=== PATIENT | female | born 1960 | race Caucasian/White ===

== ENCOUNTER 2024-01-14 08:48 | Outpatient (AMB) | payer OTHER, SELFPAY ==
--- NOTE | 2024-01-14 08:52 | A.OFFPC_ITS ---
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 Accompanied by: Self / Same As Patient Allergies No Known Allergies Allergy (Verified 01/14/24 09:09) Medication List - Last Reconciled 01/14/24 by Sherrill Sin MD amoxicillin 500 mg PO TID citalopram mg PO DAILY Tobacco use date assessed: 01/14/24 Fall risk assessment: No Falls in past year Last assessed Fall Risk: 01/14/24 Dental Screening Dental Screen Date: 01/14/24 Did you have a dental visit in the last 12 months?: Yes Did you have a dental problem in the last 6 months where you did not have access to dental care?: No Was dental information given to patient?: Patient has dentist HPI HPI Comments History of Present Illness Details This is a 63-year-old female with mild major depression that comes today to establish care. Mammogram done 2023 was normal. Pap smear done 2023 was normal. Colonoscopy was done at 60 years old and was normal and next colonoscopy should be at 70 years old. Depression stable with citalopram. EKG will be done to rule out a prolonged QT interval as 1 of the side effects of citalopram. She complains of a skin lesion that has increase in size in right arm and also right thigh and I will refer her to Dermatology. She also has some insomnia and I advised to cut down on drinking alcohol and try to exercise about 3 hours before going to bed. Not drinking a lot of liquids 2-3 hours before bedtime. She takes [id number] melatonin as needed. She also complains of right knee pain and the knee giving out sometimes. She is overweight and was advised to do diet and exercise as tolerated. [facility] Surgical History History of dental surgery History of bunionectomy History of D&C Family History Father Diabetes Cancer of kidney Mother Breast cancer Lung cancer Family/Other Substance use disorder Social History Housing: House Alcohol intake: current Alcohol intake frequency: a few times a month Alcohol type: wine Patient Tobacco Use Status: Never used Tobacco e-Cigarette/Vaping Use: Never Used Second Hand Smoke Exposure: Yes service: No Current occupational status: retired Cognitive needs: No Hearing needs: No Vision needs: Yes Female Reproductive History Menstrual Date of last pap smear: 09/23/23 Date of Mammogram: 10/01/23 Questionnaire PHQ-9 Over the last 2 weeks, how often have you been bothered by any of the following problems? 1. Little interest or pleasure in doing things: not at all 2. Feeling down, depressed, or hopeless: not at all 3. Trouble falling or staying asleep, or sleeping too much: not at all 4. Feeling tired or having little energy: not at all 5. Poor appetite or overeating: not at all 6. Feeling bad about yourself - or that you are a failure or have let yourself or your family down: not at all 7. Trouble concentrating on things, such as reading the newspaper or watching television: not at all 8. Moving or speaking so slowly that other people could have noticed. Or the opposite - being so fidgety or restless that you have been moving around a lot more than usual: not at all 9. Thoughts that you would be better off or of hurting yourself in some way: not at all Total score: 0 Depression Screening Interpretation: Negative Depression Screening Done: Yes 54665 - PHQ-9 Billing: Yes Source: Developed by Drs. Mesfin Villatoro, Ifrah Segal, Abraham Billy and colleagues, with an educational ora from [employer]. Thrive Questionnaire Date Thrive assessed: 01/14/24 I am a: Patient What is your living situation today?: I have a steady place to live Within the past 12 months, did the food you bought not last and you didn't have the money to get more?: Never true Within the past 12 months, did you worry whether your food would run out before you got money to buy more?: Never true Do you have trouble paying for medicines?: No Do you have trouble getting transportation to medical appointments?: No Do you have trouble paying your heating and electricity bill?: No Do you have trouble taking care of your child, family member or friend?: No Do you have trouble with day-to-day activities such as bathing, preparing meals, shopping, managing finances, etc.?: No Are you currently unemployed and looking for a job?: No Are you interested in more education?: No Please select the resources that you would like help with: None Currently or been in a relationship where the following occur: No concerns reported THRIVE Score: 0 AUDIT C Alcohol Use Questionnaire (AUDIT-C) 1. How often do you have a drink containing alcohol?: 2-4 times a month 2. How many drinks containing alcohol do you have on a typical day when you are drinking?: 3 or 4 3. How often do you have six or more drinks on one occasion?: Never Total Score: 3 Score Reviewed/Action Taken: Yes ANA-7 AMB Questionnaire ANA-7 Date AAN - 7 assessed: 01/14/24 Feeling nervous, anxious, or on edge: 0 = Not at all Not being able to stop or control worryin = Not at all Worrying too much about different things: 0 = Not at all Trouble relaxin = Not at all Being so restless that it is hard to sit still: 0 = Not at all Becoming easily annoyed or irritable: 0 = Not at all Feeling afraid as if something awful might happen: 0 = Not at all Total ANA-7 score (0-4 normal; 5-9 mild; 10-14 moderate; 15-21 severe): 0 Source: Developed by Drs. Mesfin Villatoro, Ifrah Segal, Abraham Billy and colleagues, with an educational ora from [employer]. ANA-7 Assessment Billing ANA-7 Assessment Tool: ANA-7 Assessment 32991 Review of Systems Const All systems reviewed & are unremarkable except as noted in HPI and below Card Denies chest pain at rest, Denies chest pain with activity, Denies edema, Denies irregular heart rhythm, Denies claudication, Denies dyspnea, Denies dyspnea on exertion, Denies orthopnea, Denies paroxysmal nocturnal dyspnea and Denies slow heart rate Resp Denies cough, Denies dyspnea and Denies dyspnea on exertion GI Denies abdominal pain, Denies change in bowel habits, Denies excessive flatus, Denies nausea and Denies vomiting Musc Reports arthralgias Skin/Breast Reports lesions Psych Reports abnormal sleep pattern Physical exam (Primary Care) Vital Signs: Last Vital Signs BP 130/80 01/14/24 08:57 BMI result Body Mass Index 29.1 BMI Assessment/Plan discussion: High BMI High, discussed plan: lifestyle, weight reduction, dietary, physical activity and alcohol moderation Tobacco/Smoking Status: Tobacco use Status Tobacco use date assessed 01/14/24 01/14/24 09:05 Patient Tobacco Use Status Never used Tobacco 01/14/24 09:05 e-Cigarette/Vaping Use Never Used 01/14/24 09:05 PHQ-9: PHQ-9 Score PHQ-9: Total score 0 01/14/24 09:12 Depression Screening Interpretation: Negative Thrive Assessment: Date of Thrive Assessment Date Thrive assessed 01/14/24 01/14/24 08:54 Currently or been in a relationship where the following occur: No concerns reported Resp Effort & Inspection: normal respiratory effort Auscultation: clear to auscultation bilaterally Cardio Jugular venous distension: no JVD Rate: regular rate Rhythm: regular rhythm Heart sounds: S1 normal heart sound present and S2 normal heart sound present Extrem General: Yes full ROM Assessment and Plan Assessment & Plan (1) Mild major depression: Code(s): F32.0 - Major depressive disorder, single episode, mild Plan: Continue citalopram. (2) Overweight (BMI 25.0-29.9): Code(s): E66.3 - Overweight Plan: Start diet and exercise as tolerated. (3) Skin lesion: Code(s): L98.9 - Disorder of the skin and subcutaneous tissue, unspecified Plan: Referred to dermatology. (4) Right knee pain: Code(s): M25.561 - Pain in right knee Qualifiers: Chronicity: chronic Qualified Code(s): M25.561 - Pain in right knee; G89.29 - Other chronic pain Plan: X-ray ordered. Referred to Ortho. (5) Insomnia: Code(s): G47.00 - Insomnia, unspecified Qualifiers: Insomnia type: unspecified Qualified Code(s): G47.00 - Insomnia, unspecified Plan: Sleep hygiene education given. Continue melatonin as needed. Orders: Orders XR knee RT 2V Today M25.561 - Pain in right knee ECG 12 lead EKG Today R94.31 - Abnormal electrocardiogram [ECG] [EKG] Lipid Panel Today E66.3 - Overweight Comprehensive [place]. Panel Fast Today E66.3 - Overweight Referrals Dermatology Referral L98.9 - Disorder of the skin and subcutaneous tissue, unspecified Orthopedics Referral M25.561 - Pain in right knee Medications: New citalopram 30 mg PO DAILY 90 caps 1RF 90 days Coding Level of Care Code New Pt Level 4 (74940) Complex EM visit Add On G2211 Diagnoses Mild major depression F32.0 Overweight (BMI 25.0-29.9) E66.3 Skin lesion L98.9 Chronic pain of right knee M25.561; G89.29 Chronicity: chronic Insomnia, unspecified type G47.00 Insomnia type: unspecified Additional Codes ANA-7 Assessment Billing - ANA-7 Assessment Tool: ANA-7 Assessment 06669 ([id number]) Time Spent (min) 24
[2024-01-14 08:57] VITALS: BP 130/80; BMI 29.1
== END 2024-01-14 09:46 | disposition home or self-care (01) ==
PROVIDERS: PCP Internal Medicine; Visit Provider Internal Medicine
DX: M25.561 Pain in right knee (principal); F32.0 Major depressive disorder, single episode, mild; E66.3 Overweight; L98.9 Disorder of the skin and subcutaneous tissue, unspecified; G89.29 Other chronic pain; G47.00 Insomnia, unspecified
CPT/HCPCS: 99204; G2211

== ENCOUNTER 2024-01-14 09:58 | Outpatient (REF) | payer OTHER, SELFPAY ==
--- NOTE | ~2024-01-14 | XR_ITS ---
EXAMINATION: XR KNEE, RIGHT CLINICAL INFORMATION: Chronic right knee pain COMPARISON: None available. TECHNIQUE: AP and lateral weightbearing views of the right knee. FINDINGS: No fracture or joint effusion. Alignment is anatomic. Joint spaces are maintained. No abnormal soft tissue calcification. XR/XR knee RT 2V IMPRESSION: Normal right knee.
--- NOTE | 2024-01-14 10:04 | ECG_ITS ---
Test Reason : abn ekg Blood Pressure : / mmHG Vent. Rate : 058 BPM Atrial Rate : 058 BPM P-R Int : 196 ms QRS Dur : 080 ms QT Int : 424 ms P-R-T Axes : 012 046 057 degrees QTc Int : 416 ms Sinus bradycardia Otherwise normal ECG No previous ECGs available Referred By: Sherrill Sin Electronically Signed By:JUDSON COOPER MD
== END 2024-01-14 09:59 | disposition home or self-care (01) ==
LOC: HO.XRAY 09:58
PROVIDERS: PCP Internal Medicine; Visit Provider Internal Medicine
DX: M25.561 Pain in right knee (principal); R94.31 Abnormal electrocardiogram [ECG] [EKG]
CPT/HCPCS: 73560; 93005

== ENCOUNTER → 2024-01-14 10:04 | Outpatient (BNV) | payer OTHER, SELFPAY | PROVIDERS: PCP Internal Medicine; Visit Provider Internal Medicine Cardiovascular Disease | DX: R00.1 Bradycardia, unspecified (principal) | CPT/HCPCS: 93010 ==

== ENCOUNTER 2024-02-17 10:01 | Outpatient (AMB) | payer OTHER, SELFPAY ==
--- NOTE | 2024-02-17 10:04 | MHC.OFFVIS ---
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 The patient states that her symptoms have gotten worse over the last 10 years. She states that her right knee will buckle several times per week. She is concerned that because of the feeling of instability she will fall at some point. She has failed the last 6 weeks of conservative treatment. She has done physical therapy exercises which aggravated her pain. She has also tried Tylenol and anti-inflammatory medicines which gave her minimal relief. Most of the pain is along the anterior and medial aspects of her knee. Allergies No Known Allergies Allergy (Verified 02/17/24 10:04) Medication List - Last Reconciled 02/17/24 by Jose Luis Barnes MD citalopram 30 mg PO DAILY 90 days citalopram 30 mg (1.5 x 20 mg) PO DAILY 90 days [facility] Surgical History History of dental surgery History of bunionectomy History of D&C Family History Father Diabetes Cancer of kidney Mother Breast cancer Lung cancer Family/Other Substance use disorder Social History Housing: House Alcohol intake: current Alcohol intake frequency: a few times a month Alcohol type: wine Patient Tobacco Use Status: Never used Tobacco e-Cigarette/Vaping Use: Never Used Second Hand Smoke Exposure: Yes service: No Current occupational status: retired Cognitive needs: No Hearing needs: No Vision needs: Yes Physical Exam Const Other: Well-nourished well-developed very friendly female awake alert and oriented x3 in no acute distress Extrem Other: Bilateral lower extremity examination shows good capillary refill, no skin lesions noted, normal sensation light touch Right knee examination shows a minimal effusion, minimal crepitus with range of motion, tenderness along her medial joint line, positive Zoraida's test, no instability Results Reviewed Results Reviewed: Standing full weight-bearing x-rays of the patient's right knee show mild diffuse joint space narrowing, no acute bony abnormalities Assessment & Plan Assessment & Plan (1) Right knee pain: Code(s): M25.561 - Pain in right knee Category: Medical Qualifiers: Chronicity: chronic Qualified Code(s): M25.561 - Pain in right knee; G89.29 - Other chronic pain Plan Ms. Hood presents with progressively worsening right knee pain and mechanical symptoms most likely due to a tear of her medial meniscus. Thus, I will send the patient for an MRI of her right knee for further evaluation. I will see her back once the MRI is completed to discuss the findings and treatment options. Feel free to call me at any time should questions regarding her orthopedic management arise. Thank you very much for asking me to see this very friendly patient. I spent 20 minutes in reviewing the patient's records and imaging studies, seeing the patient and documenting in the medical record. Orders: Orders MR knee RT wo con Today G89.29 - Other chronic pain, M25.561 - Pain in right knee Coding Level of Care Code New Pt Level 3 (10602) Diagnoses Chronic pain of right knee M25.561; G89.29 Chronicity: chronic
== END 2024-02-17 10:23 | disposition home or self-care (01) ==
PROVIDERS: PCP Internal Medicine; Visit Provider Orthopaedic Surgery
DX: M25.561 Pain in right knee (principal); G89.29 Other chronic pain
CPT/HCPCS: 99203

== ENCOUNTER → 2024-02-17 10:25 | Outpatient (REF) | payer OTHER, SELFPAY ==
[2024-02-17 12:39] LABS: Alanine Aminotransferase 33 U/L (0-31); Albumin Level 4.4 g/dL (3.5-5.0); Alkaline Phosphatase 75 U/L (39-117); Anion Gap 11 (12-20); Aspartate Amino Transferase 26 U/L (5-31); Bilirubin Total 0.5 mg/dL (0.0-1.0); Blood Urea Nitrogen 10 mg/dL (9-16); Calcium 9.6 mg/dL (8.4-10.2); Carbon Dioxide 26 mmol/L (22-29); Chloride 106 mmol/L (96-108); Cholesterol 219 mg/dL (<200); Estimated Glomerular Filt Rate > 60; Glucose Fasting 110 mg/dL (60-99); HDL Cholesterol 69 mg/dL (>40); LDL Cholesterol Calculated 121 mg/dL (<100); Potassium 4.1 mmol/L (3.3-5.1); Sodium 139 mmol/L (135-145); Total Protein 6.9 g/dL (6.5-8.0); Triglycerides 148 mg/dL (<150)
--- NOTE | 2024-02-17 13:29 | HM_ITS ---
* Total monitoring time 1 day. * Underlying rhythm is sinus with an average rate of 71/Min. * Rare supraventricular ectopy. * No significant pauses or AV blocks. * No patient markers. * Diary not submitted. MTDD
== END ==
LOC: HO.CARD 10:25
PROVIDERS: PCP Internal Medicine; Visit Provider Internal Medicine
DX: R00.1 Bradycardia, unspecified (principal); E66.3 Overweight
CPT/HCPCS: 36415; 80053; 80061; 93225; 99202

== ENCOUNTER → 2024-02-17 13:29 | Outpatient (BNV) | payer OTHER, SELFPAY | PROVIDERS: PCP Internal Medicine; Visit Provider Internal Medicine | DX: I47.10 Supraventricular tachycardia, unspecified (principal) | CPT/HCPCS: 93227 ==

== ENCOUNTER 2024-05-19 19:41 | Outpatient (REF) | payer OTHER, SELFPAY ==
--- NOTE | ~2024-05-19 | MR_ITS ---
EXAMINATION: MR KNEE WITHOUT CONTRAST, RIGHT CLINICAL INFORMATION: Right knee pain and instability. COMPARISON: Right knee radiographs dated 01/14/2024. TECHNIQUE: MRI of the knee without contrast was performed using routine sequences on a high-field scanner. FINDINGS: MENISCI: Medial Meniscus: Intact Lateral Meniscus: Intact LIGAMENTS: Cruciate: Intact Collateral: Intact EXTENSOR MECHANISM: Intact ARTICULAR CARTILAGE/BONE: Patellofemoral Compartment: Patellar median ridge articular cartilage thinning with areas of full-thickness loss superiorly, measuring up to 1.6 cm in craniocaudal dimension. Underlying subchondral cystic change and mild marrow edema. Superior medial trochlea signal heterogeneity. Tiny marginal osteophytes. Medial Compartment: Intact articular cartilage. Lateral Compartment: Intact articular cartilage. Degenerative cystic change within the posterior aspect of the lateral tibial plateau, measuring up to 1.3 cm. JOINT FLUID AND BURSAE: Small joint effusion and trace Allison's cyst. MR/MR knee RT wo con IMPRESSION: 1. No acute meniscal or ligamentous injury. 2. Mild patellofemoral osteoarthritis. 3. Small joint effusion and trace Allison's cyst. Electronically signed by: Austin Benitez MD 06/04/2024 09:11 PM [facility]
== END 2024-05-19 19:42 | disposition home or self-care (01) ==
LOC: HO.MRI 19:41
PROVIDERS: PCP Internal Medicine; Visit Provider Orthopaedic Surgery
DX: M25.561 Pain in right knee (principal); G89.29 Other chronic pain
CPT/HCPCS: 73721

== ENCOUNTER 2024-06-08 14:54 | Outpatient (AMB) | payer OTHER, SELFPAY ==
--- NOTE | 2024-06-08 15:14 | A.OFFPC_ITS ---
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 Accompanied by: Self / Same As Patient Allergies No Known Allergies Allergy (Verified 06/08/24 15:35) Medication List - Last Reconciled 06/08/24 by Sherrill Sin MD citalopram 30 mg PO DAILY 90 days Tobacco use date assessed: 01/14/24 Fall risk assessment: No Falls in past year Last assessed Fall Risk: 06/08/24 Dental Screening Dental Screen Date: 06/08/24 Did you have a dental visit in the last 12 months?: Yes Did you have a dental problem in the last 6 months where you did not have access to dental care?: No Was dental information given to patient?: Patient has dentist HPI HPI Comments History of Present Illness Details The patient is a 63-year-old female presenting for her annual physical examination. She is due for a tetanus vaccine booster, as her last dose was in 2013. The patient also requires an influenza vaccination, which she postponed following a COVID-19 infection in December 2022. Had a colonoscopy in 2020 with normal findings and no polyps; the next colonoscopy is due in 2030. The patient reports a history of HPV infection approximately 40 years ago that resolved. She recently had normal Pap smear and mammogram results in September 2023. She denies current allergies to medications. Concerning her family history, the patient mentions significant cancer occurrences, including her mother's breast and lung cancer, her sister's ovarian and breast cancers, and another sister's ovarian cancer, raising concerns for hereditary cancer syndromes. Her father had kidney cancer and diabetes. The patient expresses concern about her 36-year-old daughter's risk of breast cancer. For lifestyle-related issues, the patient notes drinking alcohol more frequently, especially during social events, but recognizes the importance of moderation. She discusses dietary habits and mentions a willingness to increase physical activity, motivated by the desire to lose weight. She has initiated walking with her and plans to [facility]. Recent blood work from January 2024 showed elevated cholesterol levels (total cholesterol 219 mg/dL, LDL 121 mg/dL, HDL 69 mg/dL), and borderline elevated fasting blood glucose at 110 mg/dL, indicating pre-diabetes. Her Safford risk score for cardiovascular events is 2%. - Tetanus booster vaccine due - Influenza vaccine administration plann ed - Colonoscopy: completed in 2020, next s cheduled for 2030, no polyps noted - Pap smear: completed in September 2023, no rmal results, may not require future tests post-65 - Mammogram: completed in September 2023, no rmal results - Recommending bone density screening du e to age and menopausal status - Genetic counseling/follow-up for famil ial cancer risk - Repeated bloodwork planned before 2023 due to pre-diabetes and liver enzyme elevation concern - Discussed alcohol consumption limits: 6 drinks per week maximum PFSH Surgical History (Updated 06/08/24 @ 15:40 by Sherrill Sin MD) H/O colonoscopy History of dental surgery History of bunionectomy History of D&C Family History (Updated 06/08/24 @ 15:44 by Sherrill Sin MD) Father Diabetes Cancer of kidney Mother Breast cancer, Onset Age: 61 Lung cancer Family/Other Substance use disorder Ovarian cancer Social History (Updated 06/08/24 @ 15:49 by Sherrill Sin MD) Housing: House Alcohol intake: current Alcohol intake frequency: a few times a week Alcohol type: wine Patient Tobacco Use Status: Never used Tobacco e-Cigarette/Vaping Use: Never Used Second Hand Smoke Exposure: Yes service: No Current occupational status: retired Cognitive needs: No Hearing needs: No Vision needs: Yes Questionnaire PHQ-9 Over the last 2 weeks, how often have you been bothered by any of the following problems? 1. Little interest or pleasure in doing things: not at all 2. Feeling down, depressed, or hopeless: not at all 3. Trouble falling or staying asleep, or sleeping too much: several days 4. Feeling tired or having little energy: not at all 5. Poor appetite or overeating: not at all 6. Feeling bad about yourself - or that you are a failure or have let yourself or your family down: not at all 7. Trouble concentrating on things, such as reading the newspaper or watching television: not at all 8. Moving or speaking so slowly that other people could have noticed. Or the opposite - being so fidgety or restless that you have been moving around a lot more than usual: not at all 9. Thoughts that you would be better off or of hurting yourself in some way : not at all Total score: 1 Depression Screening Interpretation: Positive Depression Screening Follow-up: Existing condition, In treatment and Follow-up Visit Requested Depression Screening Done: Yes 44412 - PHQ-9 Billing: Yes Source: Developed by Drs. Mesfin Villatoro, Ifrah Segal, Abraham Billy and colleagues, with an educational ora from [employer]. Thrive Questionnaire Date Thrive assessed: 06/08/24 I am a: Patient What is your living situation today?: I have a steady place to live Within the past 12 months, did the food you bought not last and you didn't have the money to get more?: Never true Within the past 12 months, did you worry whether your food would run out before you got money to buy more?: Never true Do you have trouble paying for medicines?: No Do you have trouble getting transportation to medical appointments?: No Do you have trouble paying your heating and electricity bill?: No Do you have trouble taking care of your child, family member or friend?: No Do you have trouble with day-to-day activities such as bathing, preparing meals, shopping, managing finances, etc.?: No Are you currently unemployed and looking for a job?: No Are you interested in more education?: No Please select the resources that you would like help with: None Currently or been in a relationship where the following occur: No concerns reported THRIVE Score: 0 AUDIT C Alcohol Use Questionnaire (AUDIT-C) 1. How often do you have a drink containing alcohol?: 4 or more times a week 2. How many drinks containing alcohol do you have on a typical day when you are drinking?: 3 or 4 3. How often do you have six or more drinks on one occasion?: Never Total Score: 5 ANA-7 AMB Questionnaire ANA-7 Date ANA - 7 assessed: 06/08/24 Feeling nervous, anxious, or on edge: 0 = Not at all Not being able to stop or control worryin = Not at all Worrying too much about different things: 0 = Not at all Trouble relaxin = Not at all Being so restless that it is hard to sit still: 1 = Several days Becoming easily annoyed or irritable: 0 = Not at all Feeling afraid as if something awful might happen: 0 = Not at all Total ANA-7 score (0-4 normal; 5-9 mild; 10-14 moderate; 15-21 severe): 1 Source: Developed by Drs. Mesfin Villatoro, Ifrah Segal, Abraham Billy and colleagues, with an educational ora from [employer]. ANA-7 Assessment Billing ANA-7 Assessment Tool: ANA-7 Assessment 73017 Review of Systems Const All systems reviewed & are unremarkable except as noted in HPI and below Card Denies chest pain at rest, Denies chest pain with activity, Denies edema, Denies irregular heart rhythm, Denies claudication, Denies dyspnea, Denies dyspnea on exertion, Denies orthopnea, Denies paroxysmal nocturnal dyspnea and Denies slow heart rate Resp Denies cough, Denies dyspnea and Denies dyspnea on exertion GI Denies abdominal pain, Denies change in bowel habits, Denies excessive flatus, Denies nausea and Denies vomiting Denies urinary incontinence, Denies urinary hesitancy and Denies urinary urgency Musc Denies abnormal gait, Denies atrophy, Denies deformity and Denies limited range of motion Skin/Breast Denies bleeding lesions, Denies changing lesions and Denies rash Neuro Denies abnormal gait, Denies behavioral changes and Denies lack of coordination Psych Denies behavioral changes Physical exam (Primary Care) Vital Signs: Last Vital Signs BP 128/82 06/08/24 15:16 BMI result Body Mass Index 29.3 BMI Assessment/Plan discussion: High BMI High, discussed plan: lifestyle, weight reduction, dietary, physical activity and alcohol moderation Tobacco/Smoking Status: Tobacco use Status Tobacco use date assessed 01/14/24 06/08/24 15:14 Patient Tobacco Use Status Never used Tobacco 06/08/24 15:48 e-Cigarette/Vaping Use Never Used 06/08/24 15:48 PHQ-9: PHQ-9 Score PHQ-9: Total score 1 06/08/24 16:48 Depression Screening Interpretation: Positive Depression Screening Follow-up: Existing condition, In treatment and Follow-up Visit Requested Thrive Assessment: Date of Thrive Assessment Date Thrive assessed 06/08/24 06/08/24 15:21 Currently or been in a relationship where the following occur: No concerns reported [facility] Head: Yes normal to inspection, Yes normocephalic and Yes atraumatic Ears: external ears normal Eyes General: appearance normal, both eyes and all related structures Eyelids: Yes eyelids normal Conjunctivae: conjunctivae normal Neck Neck: Yes normal visual inspection and Yes supple Resp Effort & Inspection: normal respiratory effort Auscultation: clear to auscultation bilaterally Cardio Jugular venous distension: no JVD Rate: regular rate Rhythm: regular rhythm Heart sounds: S1 normal heart sound present and S2 normal heart sound present GI Inspection: Yes normal to inspection Palpation (GI): Soft to palpation and nontender Auscultation: normal bowel sounds Skin General skin exam: no rashes or lesions noted Neuro General: no focal motor deficits Extrem General: Yes full ROM Psych Appearance: grossly normal Office Procedures Flu Questionnaire Does the patient have a severe egg allergy?: No Does the patient have severe life threatening allergies?: No Does the patient have a fever or illness today?: No Has the patient ever had Guillain-[place] Syndrome?: No Has the patient ever had any past reaction to a flu shot?: No Immunizations Fluarix Triv [id number] (PF) 45 mcg (15 mcg x 3)/0.5 mL IM syringe Performing Provider: Sherrill Sin MD Performing Location: [facility] Administered by: MICKEY Ravi on 06/08/24 16:10 Dose Route Admin Location Dispensed Lot Number Expiration Date [facility] Diet Tech 0.5 mL IM Left Deltoid 0.5 mL [id number] 12/26/24 02110-383-04 [employer] [facility] VIS Given Date VIS Provided VIS Publication Date 06/08/24 Single Vaccine 21 Eligibility Eligibility Date Funding Source Not [facility] Eligible 06/08/24 Private tetanus-diphtheria toxoids-Td 2 Lf unit-2 Lf unit/0.5 mL IM suspension Performing Provider: Sherrill Sin MD Performing Location: [facility] Administered by: MICKEY Ravi on 06/08/24 16:10 Dose Route Admin Location Dispensed Lot Number Expiration Date [facility] Diet Tech 0.5 mL IM Right Deltoid 0.5 mL [id number] 08/08/24 [id number] [employer] VIS Given Date VIS Provided VIS Publication Date 06/08/24 Single Vaccine 21 Eligibility Eligibility Date Funding Source Not [facility] Eligible 06/08/24 State funds Coding Level of Care Code Est Pt Prev Care 40-64y(11544) Diagnoses Physical exam Z00.00 Additional Codes ANA-7 Assessment Billing - ANA-7 Assessment Tool: ANA-7 Assessment 46530 ([id number]) PHQ-9 - 87119 - PHQ-9 Billing: Yes ([id number]) Time Spent (min) 31 Assessment & Plan Assessment & Plan (1) Physical exam: Code(s): Z00.00 - Encounter for general adult medical examination without abnormal findings Category: Medical Plan 1. - Discuss alcohol moderation and encourage adherence to recommended limits: - Advise on dietary modification with reduced carbohydrate intake and increased physical activity to manage pre-diabetes. - Monitor cholesterol; diet and exercise reinforcement to sustain healthy levels. - Encourage weight management and regular exercise regime, possible enrollment in the gym or walking routine continuation. Patient was informed and verbally consented to the use of an ambient scribe for clinic note documentation during this visit. I consulted with the patient regarding her pending tetanus and influenza vaccinations, confirming the need for a booster and the practicality of concurrent administration. We discussed her family history of cancer, including potential implications for her and her daughter, if she considers BRCA gene testing or other genetic evaluations. I addressed her concerns about pre- diabetes, elaborating on dietary changes and exercise to lower glucose levels. I highlighted the significance of controlling cholesterol via lifestyle modifi cations, reassured by the current protective Safford risk score. We acknowledged the need for repeated lab tests to ensure there's no progression to diabetes. Lifestyle habits and alcohol consumption were reviewed, underlining their links to triglycerides and liver health. Plans for a follow-up with dermatology were noted, addressing the scheduled June appointment. I oriented her towards Medicare practices and changes to care follow-ups post-65 with a focus on wellness rather than physical examinations. Orders: Orders Influenza [id number] Immunization Today Z23 - Encounter for immunization Lipid Panel Today E78.5 - Hyperlipidemia, unspecified XR DEXA axial skeleton Today Z78.0 - Asymptomatic menopausal state Comprehensive [place]. Panel Fast Today Z00.00 - Encounter for general adult medical examination without abnormal findings Td State Immunization Today Z23 - Encounter for immunization Referrals Genetics Referral Z80.3 - Family history of malignant neoplasm of breast Patient Instructions: - Return to the clinic for tetanus and flu vaccinations as discussed. - Follow through with genetic counseling for cancer risk assessment. - Undergo a bone density test as scheduled. - Schedule an appointment for repeated laboratory tests before June 2023 to monitor fasting glucose and liver enzymes. - Limit alcohol consumption to recommended levels: six drinks per week, with a maximum of three on any given day. - Focus on reducing carbohydrate intake, moderating caloric intake from coffee additives, and increasing physical activity to support cholesterol and glucose levels. - Anticipate and plan for healthcare adjustments upon transitioning to Medicare, prioritizing wellness visits. - Continue with the dermatology appointment in June 2023 as scheduled.
[2024-06-08 15:16] VITALS: BP 128/82; BMI 29.3
== END 2024-06-08 16:08 | disposition home or self-care (01) ==
PROVIDERS: PCP Internal Medicine; Visit Provider Internal Medicine
DX: Z23 Encounter for immunization (principal); Z00.00 Encounter for general adult medical examination without abnormal findings

== ENCOUNTER → 2024-06-08 14:54 | Outpatient (BNVA) | payer OTHER, SELFPAY | PROVIDERS: PCP Internal Medicine; Visit Provider Internal Medicine | DX: Z00.00 Encounter for general adult medical examination without abnormal findings (principal); Z23 Encounter for immunization | CPT/HCPCS: 90471; 90472; 90656; 90714; 96127; 99396 ==

== ENCOUNTER 2024-06-13 10:27 | Outpatient (AMB) | payer OTHER, SELFPAY ==
--- NOTE | 2024-06-13 10:30 | MHC.OFFVIS ---
Vital Signs 06/13/24 10:32 Height 5 ft 3.5 in Weight 168 lb BMI 29.3 Intake Visit Reasons: OV- Right knee MRI review Intake Note: Ella is a 63 year old female who presents with complaints of intermittent right knee pain and giving way. The patient states that her symptoms have gotten somewhat worse over the last 10 years. She states that her right knee will buckle several times per week. She is concerned that because of the feeling of instability she will fall at some point. She has failed the last 6 weeks of conservative treatment. She has done physical therapy exercises which aggravated her pain. She has also tried Tylenol and anti-inflammatory medicines which gave her minimal relief. Most of the pain is along the anterior and medial aspects of her knee. Allergies No Known Allergies Allergy (Verified 06/13/24 10:32) Medication List - Last Reconciled 06/13/24 by Jose Luis Barnes MD citalopram 30 mg PO DAILY 90 days PFS Surgical History (Updated 06/08/24 @ 15:40 by Sherrill Sin MD) H/O colonoscopy History of dental surgery History of bunionectomy History of D&C Family History Father Diabetes Cancer of kidney Mother Breast cancer, Onset Age: 61 Lung cancer Family/Other Substance use disorder Ovarian cancer Social History Housing: House Alcohol intake: current Alcohol intake frequency: a few times a week Alcohol type: wine Patient Tobacco Use Status: Never used Tobacco e-Cigarette/Vaping Use: Never Used Second Hand Smoke Exposure: Yes service: No Current occupational status: retired Cognitive needs: No Hearing needs: No Vision needs: Yes Physical Exam Vital Signs: BMI result Body Mass Index 29.3 Const Other: Well-nourished well-developed very friendly female awake alert and oriented x3 in no acute distress Extrem Other: Right knee examination shows a minimal effusion, minimal crepitus with range of motion, tenderness along her medial and lateral joint lines, positive Zoraida's test, no instability Results Reviewed Results Reviewed: Standing full weight-bearing x-rays of the patient's right knee show mild diffuse joint space narrowing, no acute bony abnormalities MRI of the patient's right knee shows mild diffuse degenerative changes as well as a tear of the anterior horn of the lateral meniscus and possible tear of the posterior horn of the medial meniscus Assessment & Plan Assessment & Plan (1) Right knee pain: Code(s): M25.561 - Pain in right knee Category: Medical Qualifiers: Chronicity: chronic Qualified Code(s): M25.561 - Pain in right knee; G89.29 - Other chronic pain Plan Ms. Hood presents with intermittent right knee pain and mechanical symptoms due to a tear of her lateral meniscus and possible medial meniscus tearing. I had a lengthy discussion with the patient regarding the treatment options. At this point the patient's symptoms are tolerable to her. I did give her a prescription for a Medrol Dosepak. She will continue with her home exercise program. She will follow up with me on an as-needed basis should her symptoms worsen in any way. At that time we will further discuss the risks and benefits of right knee arthroscopic surgery. Surgery would involve right knee diagnostic arthroscopy with partial lateral meniscectomy and possible partial medial meniscectomy. Feel free to call me at any time should questions regarding her orthopedic management arise. I spent 20 minutes in reviewing the patient's records and imaging studies, seeing the patient and documenting in the medical record. Medications: New methylprednisolone (Medrol (Omega)) PO PER PKG DIR 21 ea 0RF Coding Level of Care Code Est Pt Level 3 (65778) Complex EM visit Add On G2211 Diagnoses Chronic pain of right knee M25.561; G89.29 Chronicity: chronic
[2024-06-13 10:32] VITALS: BMI 29.3
== END 2024-06-13 11:01 | disposition home or self-care (01) ==
PROVIDERS: PCP Internal Medicine; Visit Provider Orthopaedic Surgery
DX: M25.561 Pain in right knee (principal); G89.29 Other chronic pain
CPT/HCPCS: 99213; G2211

== ENCOUNTER → 2024-06-13 10:27 | Outpatient (BNVA) | payer OTHER, SELFPAY | PROVIDERS: PCP Internal Medicine; Visit Provider Orthopaedic Surgery ==

== ENCOUNTER 2024-06-13 11:00 | Outpatient (REF) | payer OTHER, SELFPAY ==
[2024-06-13 13:16] LABS: Alanine Aminotransferase 45 U/L (0-31); Albumin Level 4.3 g/dL (3.5-5.0); Alkaline Phosphatase 72 U/L (39-117); Anion Gap 9 (12-20); Aspartate Amino Transferase 31 U/L (5-31); Bilirubin Total 0.4 mg/dL (0.0-1.0); Blood Urea Nitrogen 7 mg/dL (9-16); Calcium 9.1 mg/dL (8.4-10.2); Carbon Dioxide 28 mmol/L (22-29); Chloride 105 mmol/L (96-108); Cholesterol 213 mg/dL (<200); Estimated Glomerular Filt Rate > 60; Glucose Fasting 100 mg/dL (60-99); HDL Cholesterol 69 mg/dL (>40); LDL Cholesterol Calculated 118 mg/dL (<100); Potassium 4.3 mmol/L (3.3-5.1); Sodium 138 mmol/L (135-145); Total Protein 6.8 g/dL (6.5-8.0); Triglycerides 132 mg/dL (<150)
== END 2024-06-13 11:01 | disposition home or self-care (01) ==
LOC: HO.LAB 11:00
PROVIDERS: PCP Internal Medicine; Visit Provider Internal Medicine
DX: M25.561 Pain in right knee (principal); Z00.00 Encounter for general adult medical examination without abnormal findings; E78.5 Hyperlipidemia, unspecified; G89.29 Other chronic pain
CPT/HCPCS: 36415; 80053; 80061; 99212

== ENCOUNTER → 2024-07-19 11:00 | Outpatient (BNV) | payer OTHER, SELFPAY | PROVIDERS: PCP Internal Medicine; Visit Provider Radiology Diagnostic Radiology | DX: E28.39 Other primary ovarian failure (principal) | CPT/HCPCS: 77080 ==

== ENCOUNTER 2024-07-19 11:03 | Outpatient (REF) | payer OTHER, SELFPAY ==
--- NOTE | ~2024-07-19 | MM_ITS ---
EXAMINATION: DXA BONE DENSITY AXIAL HISTORY: Estrogen deficiency TECHNIQUE: [employer]Trib Dual energy absorptiometry (DEXA) of the lumbar spine, total left hip, and femoral neck was performed. COMPARISON: There are no prior studies for comparison. FINDINGS: The bone mineral density of the lumbar spine is 0.995 with a T-score of -1.7, and a Z-score of -0.5. The bone mineral density of the left total hip is 0.769 with a T-score of -1.9, and a Z-score of -0.9. The bone mineral density of the left femoral neck is 0.738 with a T-score of -2.2, and a Z-score of -0.9. FRACTURE RISK: The FRAX index suggests a risk of major osteoporotic fracture of 11.1%, and of hip fracture 1.9%. MM/XR DEXA axial skeleton IMPRESSION: Based on bone mineral density, and according to World Health Organization (WHO) criteria, the diagnosis is consistent with osteopenia. All bone density values are in grams per centimeter squared (g/cm2). Statistically, 68% of repeat scans fall within 1 SD (+/- 0.010 g/cm2 for AP spine L1-L4) and 1 SD (+/- 0.012 g/cm2 for femur total) Electronically signed by: Mesfin Iyer MD 07/19/2024 12:59 [facility]
== END 2024-07-19 11:04 | disposition home or self-care (01) ==
LOC: HO.MAMMO 11:03
PROVIDERS: PCP Internal Medicine; Visit Provider Internal Medicine
DX: Z13.820 Encounter for screening for osteoporosis (principal); Z78.0 Asymptomatic menopausal state
CPT/HCPCS: 77080

== ENCOUNTER 2025-06-13 10:11 | Outpatient (AMB) | payer MEDICARE, SELFPAY ==
--- NOTE | 2025-06-13 10:14 | A.OFFVIS_ITS ---
Intake Vital Signs 06/13/25 10:18 Height 5 ft 3.5 in Weight 168 lb BMI 29.3 BP 136/86 Blood Pressure Location Lt brachial Position Sitting Respiration 18 Pulse 67 Pulse Source Pulse Oximeter Temp 98.8 F Temp Source Temporal Artery Scan Pulse Oximetry (%) 99 Oxygen Delivery Method Room Air Intake Visit Reasons: AWV G0438 [employer] Worker Required: No Accompanied by: Self / Same As Patient Allergies No Known Allergies Allergy (Verified 06/13/25 10:39) Medication List - Last Reconciled 06/13/25 by Sherrill Sin MD calcium carbonate-vitamin D3 600 mg-10 mcg (400 unit) caps PO citalopram 20 mg PO DAILY 90 days citalopram (Celexa) 10 mg PO DAILY 90 days multivitamin 1 tab PO DAILY HPI HPI Comments History of Present Illness Details The patient is a 64 year old female presenting for a Medicare annual wellness exam. She has a past medical history of a D&C and bony anectomy. Her current medications include calcium with vitamin D and citalopram 30 mg. The patient reports no known allergies. [facility] handed to patient. [facility] reviewed and updated. Her father had a history of kidney cancer and diabetes, and her mother had a history of breast and lung cancer. She has two sisters with a history of ovarian cancer; one has and the other has a recurrence. She reports wrist pain and weakness, primarily in her thumb area, without numbness, which is possibly due to arthritis. She was previously evaluated for knee pain by an pharmacy clinical specialist. She also reports intermittent tingling in her feet. Regarding health maintenance, she completed a mammogram and a bone density scan this year, which showed osteopenia. Her last colonoscopy was in 2020, with the next one due in 2030. She also had a gynecological exam. She is up to date with her tetanus vaccine. - Immunizations: The patient is up to da te on her tetanus vaccine. - Immunizations: She will receive the fl u vaccine today and was advised to get the PCV20 pneumonia vaccine. - Screenings: She completed a mammogram this year at [facility]. - Screenings: She had a bone density sca n this year which showed osteopenia, and the next is due in 2026. - Screenings: Her last colonoscopy was i n 2020, with the next one due in 2030. - Screenings: She completed a gynecologi chepe exam. - Preventative Health: She has a will in place. [facility] Surgical History H/O colonoscopy History of dental surgery History of bunionectomy History of D&C Family History Father Diabetes Cancer of kidney Mother Breast cancer, Onset Age: 61 Lung cancer Family/Other Substance use disorder Ovarian cancer Social History Housing: House Alcohol intake: current Alcohol intake frequency: a few times a week Alcohol type: wine Patient Tobacco Use Status: Never used Tobacco e-Cigarette/Vaping Use: Never Used Second Hand Smoke Exposure: Yes service: No Current occupational status: retired Cognitive needs: No Hearing needs: No Vision needs: Yes Questionnaire Mini Mental State Exam (MMSE) Orientation What is the (year) (season) (date) (day) (month)?: year, season, date, day and month Where are we (state) (county) (town or city) (hospital) (floor)?: state, county, town or city, hospital/clinic and floor Registration Name of 3 unrelated objects clearly and slowly, then ask patient to repeat all 3 of them. (1st repeat determines score. Make sure they can repeat all three): object 1, object 2 and object 3 Attention & Calculation (CHOOSE ONE) Spell WORLD backwards (DLROW): 5 letters Recall Ask patient to repeat the 3 items from question #3.: object 1, object 2 and object 3 Language Show patient a wristwatch & ask what it is. Repeat for pencil.: watch and pencil Ask the patient to repeat the phrase 'No ifs, ands, or buts' after you.: correct Ask the patient to 'take a piece of paper with their right hand' 'fold paper in half' 'place paper on floor': take paper in right hand, fold paper in half and place paper on floor Print the sentence 'CLOSE YOUR EYES' on a piece. If patient actually closes eyes then score.: followed written direction Give patient a blank piece of paper & ask to write a sentence. Score if it contains a noun & verb.: sentence contains subject and verb Ask patient to copy figure of intersecting pentagons exactly. Score if all 10 angles & 2 intersects are included.: all 10 angles present & 2 are intersected Score Score: 30 Activity of Daily Living Bathing - sponge bath, tub bath or shower: receives no assistance (gets in/out by self, if usual bathing means Dressing - getting clothes from closets & drawers, including inner/outer garments & fasteners.: gets clothes & gets completely dressed without help Toileting - going to the 'toilet room' for urine/bowel elimination & cleaning self/arranging clothes: goes to toilet room, cleans self, arranges clothes without help Transfer: moves in & out of bed and chair without help (may use support object) Continence: controls urination/bowel movements completely by self Feeding: feeds self without help Total Score: 0 Information obtained from: patient Using telephone: independent Traveling: independent Shopping: independent Preparing meals: independent Housework: independent Taking medicine: independent Managing money: independent PHQ-9 Over the last 2 weeks, how often have you been bothered by any of the following problems? 1. Little interest or pleasure in doing things: several days 2. Feeling down, depressed, or hopeless: several days 3. Trouble falling or staying asleep, or sleeping too much: several days 4. Feeling tired or having little energy: several days 5. Poor appetite or overeating: not at all 6. Feeling bad about yourself - or that you are a failure or have let yourself or your family down: not at all 7. Trouble concentrating on things, such as reading the newspaper or watching television: not at all 8. Moving or speaking so slowly that other people could have noticed. Or the opposite - being so fidgety or restless that you have been moving around a lot more than usual: not at all 9. Thoughts that you would be better off or of hurting yourself in some w ay: not at all Total score: 4 Depression Screening Interpretation: Negative Depression Screening Done: Yes 36640 - PHQ-9 Billing: Yes Source: Developed by Drs. Mesfin Villatoro, Ifrah Segal, Abraham Billy and colleagues, with an educational ora from [employer]. ANA-7 AMB Questionnaire ANA-7 Date ANA - 7 assessed: 06/13/25 Feeling nervous, anxious, or on edge: 1 = Several days (sometimes) Not being able to stop or control worryin = Not at all Worrying too much about different things: 0 = Not at all Trouble relaxin = Not at all Being so restless that it is hard to sit still: 0 = Not at all Becoming easily annoyed or irritable: 0 = Not at all Feeling afraid as if something awful might happen: 0 = Not at all Total ANA-7 score (0-4 normal; 5-9 mild; 10-14 moderate; 15-21 severe): 1 Source: Developed by Drs. Mesfin Villatoro, Ifrah Segal, Abraham Billy and colleagues, with an educational ora from [employer]. ANA-7 Assessment Billing ANA-7 Assessment Tool: ANA-7 Assessment 26479 PHQ-2/PHQ-9 PHQ-2 Over the last 2 weeks, how often have you been bothered by any of the following problems? 1. Little interest or pleasure in doing things: several days 2. Feeling down, depressed, or hopeless: several days Total score: 2 If score is 3 or greater, continue 3. Trouble falling or staying asleep, or sleeping too much: several days 4. Feeling tired or having little energy: several days 5. Poor appetite or overeating: not at all 6. Feeling bad about yourself - or that you are a failure or have let yourself or your family down: not at all 7. Trouble concentrating on things, such as reading the newspaper or watching television: not at all 8. Moving or speaking so slowly that other people could have noticed. Or the opposite - being so fidgety or restless that you have been moving around a lot more than usual: not at all 9. Thoughts that you would be better off or of hurting yourself in some way: not at all Total score: 4 10. If you checked off any problems, how difficult have those problems made it for you to do your work, take care of things at home, or get along with other people?: not difficult at all 0-4 None-Minimal, 5-9 Mild, 10-14 Moderate, 15-19 Moderately Severe, 20-27 Severe Source: Developed by Drs. Mesfin Villatoro, Ifrah Segal, Abraham Billy and colleagues, with an educational ora from [employer]. Thrive Questionnaire Date Thrive assessed: 06/13/25 I am a: Patient What is your living situation today?: I have a steady place to live Within the past 12 months, did the food you bought not last and you didn't have the money to get more?: Never true Within the past 12 months, did you worry whether your food would run out before you got money to buy more?: Never true Do you have trouble paying for medicines?: No Do you have trouble getting transportation to medical appointments?: No Do you have trouble paying your heating and electricity bill?: No Do you have trouble taking care of your child, family member or friend?: No Do you have trouble with day-to-day activities such as bathing, preparing meals, shopping, managing finances, etc.?: No Are you currently unemployed and looking for a job?: No Are you interested in more education?: No Please select the resources that you would like help with: None Currently or been in a relationship where the following occur: No concerns reported THRIVE Score: 0 AUDIT C Alcohol Use Questionnaire (AUDIT-C) 1. How often do you have a drink containing alcohol?: 2-3 times a week 2. How many drinks containing alcohol do you have on a typical day when you are drinking?: 3 or 4 3. How often do you have six or more drinks on one occasion?: Less than monthly Total Score: 5 Review of Systems Const All systems reviewed & are unremarkable except as noted in HPI and below Card Denies chest pain at rest, Denies chest pain with activity, Denies edema, Denies irregular heart rhythm, Denies claudication, Denies dyspnea, Denies dyspnea on exertion, Denies orthopnea, Denies paroxysmal nocturnal dyspnea and Denies slow heart rate Resp Denies cough, Denies dyspnea and Denies dyspnea on exertion GI Denies abdominal pain, Denies change in bowel habits, Denies excessive flatus, Denies nausea and Denies vomiting Denies urinary incontinence, Denies urinary hesitancy and Denies urinary urgency Physical Exam Vital Signs: Last Vital Signs Temp 98.8 F 06/13/25 10:18 Pulse 67 06/13/25 10:18 Resp 18 06/13/25 10:18 BP 136/86 06/13/25 10:18 Pulse Ox 99 06/13/25 10:18 Oxygen Delivery Method Room Air 06/13/25 10:18 BMI result Body Mass Index 29.3 Const Orientation/consciousness: patient oriented x3 Resp Effort & Inspection: normal respiratory effort Auscultation: clear to auscultation bilaterally Cardio Jugular venous distension: no JVD Rate: regular rate Rhythm: regular rhythm Heart sounds: S1 normal heart sound present and S2 normal heart sound present Neuro General: patient oriented x3 and no focal motor deficits Romberg Test: Negative Extrem General: Yes full ROM Psych Appearance: grossly normal Office Procedures Flu Questionnaire Does the patient have a severe egg allergy?: No Does the patient have severe life threatening allergies?: No Does the patient have a fever or illness today?: No Has the patient ever had Guillain-[place] Syndrome?: No Has the patient ever had any past reaction to a flu shot?: No Immunizations Fluarix [id number] (PF) 45 mcg (15 mcg x 3)/0.5 mL IM syringe Performing Provider: Sherrill Sin MD [facility] Administered by: Maia Andrews LPN on 06/13/25 11:09 Dose Route Admin Location Dispensed Lot Number Expiration Date [facility] Child Nurse 0.5 mL IM Left Deltoid 0.5 mL [id number] 12/26/25 71919-824-55 [place] [employer] VIS Given Date VIS Provided VIS Publication Date 06/13/25 Single Vaccine 24 Eligibility Eligibility Date Funding Source Not [facility] Eligible 06/13/25 Private Assessment & Plan Assessment & Plan (1) Encounter for Medicare annual wellness exam: Code(s): Z00.00 - Encounter for general adult medical examination without abnormal findings (2) Mild major depression: Code(s): F32.0 - Major depressive disorder, single episode, mild Plan Plan 1. Medicare Annual Wellness Exam The patient presented for her annual Medicare wellness visit. Health maintenance screenings including mammogram, bone density scan, and colonoscopy were reviewed and are up to date. She will receive her influenza vaccine today. She was advised to get the PCV20 pneumonia vaccine, which she may receive at a later date or at a pharmacy. She will be given a form for advance directives to be scanned into her chart. The patient's bone density scan this year showed osteopenia. She is currently taking calcium with vitamin D for treatment. Her next bone density scan is scheduled for 2026. Orders: Orders Vitamin B12 and Folate Today E53.8 - Deficiency of other specified B group vitamins Influenza [id number] Immunization Today Z23 - Encounter for immunization Quality Reporting (2019) Depression/Bipolar (159/160/161/177) PHQ-9: Total score: 4 Coding Level of Care Code Medicare First (G0438) Diagnoses Encounter for Medicare annual wellness exam Z00.00 Mild major depression F32.0 CPT Codes Advance Care Planning - Time spent: 1-15 minutes, on File ([id number]) Additional Codes ANA-7 Assessment Billing - ANA-7 Assessment Tool: ANA-7 Assessment 51616 ([id number]) PHQ-9 - 45220 - PHQ-9 Billing: Yes ([id number]) Time Spent (min) 33 Advance Care Planning Advance Care Planning discussion: Exists, not on file Date of discussion: 06/13/25 Who was present: patient and me Forms completed: Health Care Proxy Time spent: 1-15 minutes, on File Actual minutes spent: 1
[2025-06-13 10:18] VITALS: BP 136/86; PULSE 67; RESP 18; TEMP 37.1; O2SAT 99; BMI 29.3
--- OUTSIDE RECORDS SUMMARY | 2025-06-13 12:39 | XMS_ITS | Encounter Summary ---
Author Organization [facility] Address [address] [place] [address] Phone Care Team Providers Care Administration Dean Name Role Phone Bo Miller MD Unavailable [phone] Donya Ahuja MD Unavailable [phone] Catherine Hernandez Primary Care Provide r Wen Bryson MD Primary Care Provid er Encounter Details Date Type Department Care Team (Late st Contact Info) Description 05/31/2021 Procedure Pass [facility] - [address] [place] [address] Social History Tobacco Use Types Packs/Day Years Used Date Smoking Tobacco: Never Smokeless Tobacco: Never Alcohol Use Standard Drinks/Week Comments Yes 0 (1 standard drink = 0.6 oz pur e alcohol) 2-3 nights weekly Comments No Sex and Gender Information Value Date Recorded Sex Assigned at Not on file Legal Sex Female 2:11 PM EDT Gender Identity Not on file Sexual Orientation Not on file 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 Not on file Not on file documented as of this encounter Plan of Treatment Upcoming Encounters Date Type Department Care Team (Late st Contact Info) Description 10/25/2025 10:40 AM EDT Office Visit [facility] Internal Medicine [address] [facility] [place] [address] Caitlin Macdonald PA-C [address] [place] [phone] [email or web address] documented as of this encounter Visit Diagnoses Not on filedocumented in this encounter Additional Health Concerns Assessment Noted Time PHQ-2 Depression Total Score: 2 02/20/20 20 6:02 PM EDT documented as of this encounter Care Teams Administration Dean Relationship Specialty Start Date End Date Catherine Hernandez PA [address] [place] [phone] [email or web address] PCP - General 08/30/19 12/10/21 Wen Bryson MD [address] [place] [address] [place] [phone] [email or web address] PCP - General Family Medicine 12/11/21 09/01/22 Bo Miller MD [address] [place] [address], [address] [place] [phone] [email or web address] Internal Medicine 10/29/18 Donya Ahuja MD [address] [place] [address], [address] [place] [phone] [email or web address] Insurance Assigned Provider Family Medicine 12/03/18 documented as of this encounter Additional Source Comments The information contained in this document represents components of the legal health record. It is not the complete legal health record.[facility]
--- OUTSIDE RECORDS SUMMARY | 2025-06-13 12:39 | XMS_ITS | Encounter Summary ---
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 [employer] Not on file Not on file Not on file documented as of this encounter Plan of Treatment Upcoming Encounters Date Type Department Care Team (Late st Contact Info) Description 10/25/2025 10:40 AM EDT Office Visit [facility] Internal Medicine [address] [place] [address] Caitlin Macdonald PA-C [address] [place] [phone] [email or web address] documented as of this encounter Visit Diagnoses Not on filedocumented in this encounter Additional Health Concerns Assessment Noted Time PHQ-2 Depression Total Score: 2 02/20/20 20 6:02 PM EDT documented as of this encounter Care Teams Head Soft Sugar Operator Relationship Specialty Start Date End Date Catherine Hernandez PA [address] [place] [phone] [email or web address] PCP - General 08/30/19 12/10/21 Wen Bryson MD [address] [place] [address] [place] [phone] [email or web address] PCP - General Family Medicine 12/11/21 09/01/22 Bo Miller MD [address] [place] [address], [address] [place] [phone] [email or web address] Internal Medicine 10/29/18 Donya Ahuja MD [address] [place] [address], [address] [place] [phone] [email or web address] Insurance Assigned Provider Family Medicine 12/03/18 documented as of this encounter Additional Source Comments The information contained in this document represents components of the legal health record. It is not the complete legal health record.[facility]
--- OUTSIDE RECORDS SUMMARY | 2025-06-13 12:40 | XMS_ITS | Clinical Summary ---
Author Organization [facility] Address [address] [place] [address] Phone Care Team Providers Care Retirement Actuary Name Role Phone Bo Miller MD Unavailable [phone] Donya Ahuja MD Unavailable [phone] Allergies No known active allergies Medications fluticasone propionate (FLONASE) 50 mcg/actuation nasal spray 1 spray by Nasal route as needed. Active citalopram (CELEXA) 20 MG tablet Take 1 tablet (20 mg total) by mouth daily. Take along with 10mg for 30mg daily total 90 tablet 3 07/24/2021 Active citalopram (CELEXA) 10 MG tablet Take 1 tablet (10 mg total) by mouth daily. Take along with 20mg for 30mg daily total 90 tablet 3 07/24/2021 Active Active Problems Problem Noted Date Diagnosed Date Encounter for routine adult health examination without abnormal findings 02/26/2020 Assessment & Plan (07/24/2021 9:08 PM EST): Pap: NIL/HPV- on 12/06/18. Next due 2023 Mammogram: birads-1 on 06/25/21 Colonoscopy: completed 09/05/20. On 10 year recall Labs: lipids/a1c/cbc/cmp ordered Immunizations: she will call pharmacy to get second shingrix done, but utd otherwise Follow up annually for CPE Assessment & Plan (02/26/2020 6:50 PM EDT): Pap: NIL/HPV- on 12/06/18. Next due 2023 Mammogram: birad-1 12/09/18. Repeat ordered Colonoscopy: due. Last one at age 49 on 10 year recall. Referral to GI placed Labs: lipids/a1c/cbc/cmp/hiv/hep c screen ordered Immunizations: she will call pharmacy to get second shingrix done. Recommend flu shot once available as well. Follow up annually for CPE Abdominal pain, epigastric 02/26/2020 Assessment & Plan (02/26/2020 6:54 PM EDT): Suspect related to gastritis vs GERD now having sensation of dysphagia. -will refer to GI -start omeprazole 20mg nightly on an empty stomach. Elevate HOB, decrease etoh intake and avoid high acidity foods -call in the interim with any new/worsening symptoms Post-menopausal bleeding 07/16/2019 Assessment & Plan (08/29/2019 12:09 PM EST): Sonohysterogram of small endometrial polyp 0.6 cm. Patient counseled for EMB and EMB done. Will call patient with results and plan follow-up. Assessment & Plan (08/01/2019 2:16 PM EST): Discussed with patient possible etiologies of postmenopausal bleeding including but not limited to atrophy, endometrial polyp, hyperplasia, carcinoma. Plan for pelvic ultrasound with sonohysterogram if needed. Assessment & Plan (07/16/2019 7:35 PM EST): No obvious cause of bleeding on pelvic exam today. No evidence of vaginal irritation, cervical abnormality. -will place urgent referral to ANIMAL SCIENCE PROFESSOR for further evaluation -patient will stop on her way out today to schedule. Discussed if she cannot get apt in the next week to let me know and I will go ahead and order U/S in the interim and she agrees with that plan Seasonal allergies 11/11/2018 Anxiety with depression 11/11/2018 Assessment & Plan (07/24/2021 9:09 PM EST): Chronic and stable. Feels current dose is effective w/o SE -continue celexa 30mg daily Assessment & Plan (02/26/2020 6:52 PM EDT): Recent worsening with stress/isolation due to pandemic. Feeling more depressed. Has done well on celexa 20mg daily w/o side effects. -increase celexa to 30mg daily -she is going to look to establish with new therapist as well -plan to follow up in 4-6 weeks for medication recheck or sooner if any new/worsening concerns in the interim. Immunizations Immunization Administration Dates Next Due COVID-19 (Pre-04/20) Pfizer Vaccine, mRNA, PF 10/20/2020,09/29/2020 Hepatitis A, Adult 10/27/2016,03/13/2016 Hepatitis B Adult 10/27/2016,05/28/2016,03/25/20 16 Influenza Quadrivalent MDCK Preservative Free IM 04/24/2021 Influenza Quadrivalent Preservative Free IM 03/29 Tdap 10/27/2013 Zoster recombinant 12/02/2017 Family History Medical History Relation Comments No Known Problems Brother 1 Skin cancer Brother 2 No Known Problems Brother 3 Diabetes Father Heart disease Father Kidney cancer Father age 79 Breast cancer Maternal Aunt mat great aunt d ied in her 70s ?of the cancer Breast cancer Mother Lung cancer Mother smoker; separate primary dx at the tiime of breast cancer. age 63 of disease. Stroke Paternal Grandmother Breast cancer Sister 1 at 66 Ovarian cancer Sister 1 separate diagnos ed same time as breast. BRCA neg. No Known Problems Sister 2 Relation Status Comments Brother 1 Alive Brother 2 Alive Brother 3 Alive Daughter Alive Father Maternal Aunt Mother Paternal Grandfather Paternal Grandmother Sister 1 Sister 2 Alive Social History Tobacco Use Types Packs/Day Years Used Date Smoking Tobacco: Never Smokeless Tobacco: Never Alcohol Use Standard Drinks/Week Comments Yes 0 (1 standard drink = 0.6 oz pur e alcohol) 2-3 nights weekly Child or Family Care Answer Date Record ed Do you have problems with on e of the following making it difficult for you to work, study, or receive health care? No 07/22/2021 Education Answer Date Recorded Are you interested in more education? Not on alberto e 07/28/2023 Are you concerned about learning? Not on file 07/28/2023 No 07/28/2023 No 07/28/2023 Food Answer Date Recorded Within the past 6 months we worried whether our food would run out before we got money to buy more. Never True 07/22/2021 Within the past 6 months the food we bought just didn't last and we didn't have enough money to get more. Never True Residential Stability Answer Date Recor ded What is your housing situation today? I have xochilt sing 07/22/2021 How many times have you move d in the past 12 months? Zero (I did not move) 07/22/2021 06 Are you worried that in t he next 2 months, you may not have your own housing to live in? No 07/22/2021 Paying for Meds Answer Date Recorded Do you have trouble paying for medicines? No 07/22/2021 Paying Utility Bills Answer Date Record ed Do you have trouble paying your heating or elect ricity bill? No 07/22/2021 Transportation Answer Date Recorded Has the lack of transportati on kept you from medical appointments or from getting medications? No 07/22/2021 Unemployment Answer Date Recorded Are you currently unemployed or working on a part-time or temporary basis, and looking for work? No 07/22/2021 Digital Access Answer Date Recorded No 11/22/2022 No 11/22/2022 No 11/22/2022 Reliable internet access at home? Not on file 11/22/2022 Device with a working camera? 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 [employer] Not on file Not on file Not on file Last Filed Vital Signs Vital Sign Reading Time Taken Comments Blood Pressure 124/68 02/23/2020 12:49 PM EDT Pulse 74 02/23/2020 12:49 PM EDT Temperature 36.3 C (97.3 F) 02/23/2020 12:49 PM EDT Respiratory Rate - - Oxygen Saturation 99% 02/23/2020 12:49 PM EDT Inhaled Oxygen Concentration - - Weight 75.3 kg (166 lb) 07/24/2021 9:22 AM EST Height 159.7 cm (5' 2.87 ) 07/24/2021 9:22 AM ES T Body Mass Index 29.52 07/24/2021 9:22 AM EST Plan of Treatment Upcoming Encounters Date Type Department Care Team (Late st Contact Info) Description 10/25/2025 10:40 AM EDT Office Visit [facility] [address] [place] [address] Caitlin Macdonald PA-C [address] [place] [address] [email or web address] Due Date Last Done Comments COLOGUARD 2004 FIT TEST 2004 FOBT 2004 SIGMOIDOSCOPY 2004 VIRTUAL COLONOSCOPY 2004 PNEUMOCOCCAL VACCINES (50+ years) (1 of 1 - PCV) 2009 ZOSTER VACCINES (2 of 2) 01/27/2018 12/02/2017 DEPRESSION SCREENING 07/22/2022 07/22/2021 MAMMOGRAM 06/25/2023 06/25/2021, 12/2019, 12/06/2018, Additional history exists Adult Td,Tdap Booster 10/28/2023 10/27/2013 PAP SMEAR 12/07/2023 12/06/2018, 11/27, 11/11/2018, Additional history exists OSTEOPOROSIS SCREENING INITIAL (ONE-TIME) 2024 INFLUENZA VACCINE (#1) 2025 04/24/2021, 2019 COVID-19 VACCINE ( season) 2025 05/10/2021, 10/20/2020, 09/29/2020 LIPID PANEL 07/24/2026 07/24/2021, 01/28, 12/06/2018 COLONOSCOPY 09/05/2030 09/05/2020 COLORECTAL CANCER SCREENING 09/05/2030 RSV VACCINE (1 - 1-dose 75+ series) 2034 HEPATITIS A VACCINES Aged Out 10/27/2016, 03/13/20 16 No longer eligible based on patient's age to complete this topic HEPATITIS C SCREENING Completed 02/23/2020 HIV ONE-TIME SCREENING (18-65 YEARS) Completed 02/23/2020 SMOKING STATUS SCREENING (Once After 26 Yrs) Completed 07/24/2021 HIB VACCINES Aged Out No longer eligi ble based on patient's age to complete this topic MENINGOCOCCAL VACCINES (ACWY) Aged Out No longer eligible based on patient's age to complete this topic MENINGOCOCCAL VACCINES (B) Aged Out N o longer eligible based on patient's age to complete this topic Medical Devices Not on file Procedures Procedure Name Priority Date/Time Associated Diagnosis Comments LIPID PANEL Routine 07/24/2021 10:35 AM EST Encounter for routine adult health examination with abnormal findings BI MAMMOGRAM SCREENING WITH TOMOSYNTHESIS WITH CAD (BILATERAL) Routine 06/25/2021 2:36 PM EST Breast screening HM COLONOSCOPY FOR RESULT ENTRY ONLY Routine 09/05/2020 HEPATITIS C ANTIBODY, QUALITATIVE Routine 02/23/2020 2:07 PM EDT Encounter for routine adult health examination with abnormal findings PAP TEST Routine 12/06/2018 12:00 AM EDT from Last 3 Months or Most Recently Relevant to Health Maintenance Results * (ABNORMAL) Lipid panel (07/24/2021 10:35 AM EST) HDL 67 mg/dL [facility] Comment: Interpretation <40 mg/dL: Low HDL cholesterol (major risk factor for CHD) Greater than or equal to 60 mg/dL: High HDL cholesterol ( negative risk factor for CHD) HDL - cholesterol is affected by a number of factors, e.g. smoking, excerise, hormones, sex and age. CHOLESTEROL 208 0 - 240 mg/dL [facility] TRIGLYCERIDES 101 30 - 160 mg/dL [facility] LDL 121 50 - 129 mg/dL [facility] Comment: LDL levels in terms of risk for coronary heart disease: <100 mg/dL: Optimal 100-129 mg/dL: Near or above optimal 130-159 mg/dL: Borderline high 160-189 mg/dL: High >190 mg/dL: Very High CARDIAC RISK RATIO 3.1(L) 3.3 - 4.4 [facility] Blood 07/24/2021 10:3 5 AM EST 07/24/2021 10:39 AM EST us Catherine DOSHI LAB BLOOD BKR ORDERAB LES Final Result [facility] [address] [place] [address] * BI MAMMOGRAM SCREENING WITH TOMOSYNTHESIS WITH CAD (BILATERAL) (06/25/2021 2:36 PM EST) Anatomical Region Laterality Modality Breast Left, Breast Right, Breast Bilateral Bila teral Mammography 06/25/2021 2:45 PM EST Impressions 06/25/2021 2:52 PM EST BILATERAL BREASTS: Negative, no evidence of malignancy. Normal interval follow- up is recommended in 12 months. Bi-RADS: BI-RADS CATEGORY: 1 - Negative. DENSITY: There are scattered fibroglandular densities. Narrative 06/25/2021 2:52 PM EST STUDY: Bilateral screening mammography with tomosynthesis and CAD TECHNIQUE: Bilateral full-field digital screening mammography is obtained and read in conjunction with computer-aided detection. Tomosynthesis as well as 2-D C view imaging were obtained. COMPARISON: Comparison made to multiple prior, most recent April 04, 2020, and most remote April 14, 2016. BREAST COMPOSITION: There are scattered areas of fibroglandular density BILATERAL BREASTS: No significant masses, suspicious calcifications or other abnormalities are seen. Procedure Note Magdalena Canales MD - 06/25/2021 STUDY: Bilateral screening mammography with tomosynthesis and CAD TECHNIQUE: Bilateral full-field digital screening mammography is obtainedand read in conjunction with computer-aided detection. Tomosynthesis aswell as 2-D C view imaging were obtained. COMPARISON: Comparison made to multiple prior, most recent March, and most remote April 14, 2016. BREAST COMPOSITION: There are scattered areas of fibroglandulardensity BILATERAL BREASTS: No significant masses, suspicious calcifications orother abnormalities are seen. IMPRESSION: BILATERAL BREASTS: Negative, no evidence of malignancy. Normal intervalfollow-up is recommended in 12 months. Bi-RADS: BI-RADS CATEGORY: 1 - Negative. DENSITY: There are scattered fibroglandular densities. Catherine DOSHI IMG MG EXAMS Final Result * COLONOSCOPY FOR RESULT ENTRY ONLY (09/05/2020) Historical Provider [facility] Edited Result - Final * Hepatitis C antibody, qualitative (02/23/2020 2:07 PM EDT) HCV NON-REACTIV E NON-REACTI VE [facility] Blood 02/23/2020 2:07 PM EDT 02/23/2020 2:09 PM EDT Catherine DOSHI LAB BLOOD BKR ORDERAB LES Final Result [address] [address] * Pap Smear (12/06/2018 12:00 AM EDT) 12/06/2018 12/07/2018 9:3 6 AM EDT Narrative SEE NARRATIVE - 12/10/2018 3:03 PM EDT [address] [address] Nurse Supervisor: Leanna Molina MD ANIMAL SCIENCE PROFESSOR Cytology Report FINAL DIAGNOSIS A. PAP SMEAR (SUREPATH) CE: SPECIMEN ADEQUACY: Satisfactory for evaluation; transformation zone present. INTERPRETATION: NEGATIVE FOR INTRAEPITHELIAL LESION OR MALIGNANCY. Electronically Signed Out By: GUALBERTO Montero(ASCP) The Pap test is a screening test primarily for squamous cancers and precursors and has associated false-negative and false-positive results. New technologies such as liquid-based preparations may decrease but will not eliminate all false-negative results. Regular sampling and follow-up of unexplained clinical signs and symptoms are recommended to minimize false negative results. PROCEDURES/ADDENDA HPV Testing (Requested) Ordered Date: 12/07/2018 A. PAP SMEAR (SUREPATH) CE: HPV Test Negative for high-risk human papillomavirus types 16, 18, 45 and the Other high risk probe set (Includes 31, 33, 35, 39, 51, 52, 56, 58, 59, 66, 68) by [employer] Onclarity HR-HPV analysis. Clinical correlation is advised. This HPV test was performed at [facility], [address] [place] [address]. This test has been FDA approved for SurePath cervical cytology specimens. The accuracy and precision of this test for all other specimen sources has been verified in the Cytopathology Laboratory of the [facility] and has not been cleared or approved by the U.S. Food and Drug Administration. Clinical correlation is advised. CLINICAL HISTORY Date of Last Menstrual Period: Not Provided Menstrual History: Post Menopausal Other Clinical Conditions: Screening Pap SPECIMEN SOURCE A: PAP SMEAR (SUREPATH) CE Patient Name: JANE HOOD : 1960 (Age: 58) Sex: F Institution: [facility] Location: [facility] Date of Collection: 12/06/2018 Date of Reported: 12/10/2018 15:03 Results to: Catherine Hernandez PA-C Catherine DOSHI CYTOLOGY ORDERABLES F inal Result SEE NARRATIVE from Last 3 Months or Most Recently Relevant to Health Maintenance Insurance [facility] [employer] PL[employer] [facility] [employer] DIRECT [facility] DIRECT [facility] [employer] [place] [place] [address] [employer] DIRECT [facility] DIRECT [facility] [employer] [place] [place] [address] [employer] DIRECT [facility] [employer] DIRECT Care Teams Retirement Actuary Relationship Specialty Start Date End Date Bo Miller MD [address] [place] [address], [address] [place] [address] [email or web address] Internal Medicine 10/29/18 Donya Ahuja MD [address] [place] [address], [address] [place] [address] [email or web address] Insurance Assigned Provider Family Medicine 12/03/18 Additional Source Comments The information contained in this document represents components of the legal health record. It is not the complete legal health record.[facility]
--- OUTSIDE RECORDS SUMMARY | 2025-06-13 12:40 | XMS_ITS | Encounter Summary ---
Author Organization [facility] Address [address] [employer] [address] [employer] [address] [place] [address] Phone Care Team Providers Care Management Assistant Name Role Phone Catherine Hernandez Primary Care Provide r Bo Miller MD Unavailable [phone] Donya Ahuja MD Unavailable [phone] Bo Miller MD Primary Care Provider Catherine Hernandez Primary Care Provide r Wen Bryson MD Primary Care Provid er Encounter Details Date Type Department Care Team (Late st Contact Info) Description 12/09/2018 Ancillary Orders [facility] [place] [address] Catherine Hernandez PA [address] [place] [phone] [email or web address] Abnormal mammogram Social History Tobacco Use Types Packs/Day Years Used Date Smoking Tobacco: Never Smokeless Tobacco: Never Alcohol Use Standard Drinks/Week Comments Yes 0 (1 standard drink = 0.6 oz pur e alcohol) socially. depends Comments No Sex and Gender Information Value [...] Description 10/25/2025 10:40 AM EDT [facility] [address] [place] [address] Caitlin Macdonald PA-C [address] [place] [address] [email or web address] Scheduled Orders Name Type Priority Associated Diagnoses Orde r Schedule US Breast (Right) Imaging Routine Abnormal mammogram 1 Occurrences starting 12/09/2018 until 12/08/2020 documented as of this encounter Visit Diagnoses Diagnosis Abnormal mammogram Abnormal mammogram, unspecified documented in this encounter Additional Health Concerns Assessment Noted Time PHQ-2 Depression Total Score: 0 11/12/19 19 1:55 PM EDT documented as of this encounter Care Teams Management Assistant Relationship Specialty Start Date End Date Catherine Hernandez PA [address] [place] [phone] [email or web address] PCP - General 10/29/18 07/31/19 Bo Miller MD [address] [place] [address], [address] [place] [address] [email or web address] PCP - General Internal Medicine 08/01/19 08/29/19 Catherine Hernandez PA [address] [place] [phone] [email or web address] PCP - General 08/30/19 12/10/21 Wen Bryson MD [address] [place] [address] [address] [place] [address] [email or web address] PCP - General Family Medicine 12/11/21 09/01/22 Bo Miller MD [address] [place] [address], [address] [place] [address] [email or web address] Internal Medicine 10/29/18 Donya Ahuja MD [address] [place] [address], [address] [place] [address] [email or web address] Insurance Assigned Provider Family Medicine 12/03/18 documented as of this encounter Additional Source Comments The information contained in this document represents components of the legal health record. It is not the complete legal health record.[facility]
--- OUTSIDE RECORDS SUMMARY | 2025-06-13 12:40 | XMS_ITS | Encounter Summary ---
Author Organization [facility] Address [address] [facility] [facility] [facility] [address] [place] [address] Phone Care Team Providers Care Front Desk Monitor Name Role Phone Catherine Hernandez Primary Care Provide r Bo Miller MD Unavailable [phone] Donya Ahuja MD Unavailable Bo Miller MD Primary Care Provider [phone] Catherine Hernandez Primary Care Provide r Wen Bryson MD Primary Care Provid er Encounter Details Date Type Department Care Team (Late st Contact Info) Description 12/08/2018 Ancillary Orders [facility] [place] [address] Catherine Hernandez PA [address] [place] [phone] [email or web address] Abnormal mammogram Social History Tobacco Use [...] Start Date Job End Date 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 [employer] Not on file Not on file Not on file documented as of this encounter Plan of Treatment Upcoming Encounters Date Type Department Care Team (Late st Contact Info) Description 10/25/2025 10:40 AM EDT Office Visit [facility] Internal Medicine [address] [place] [address] Caitlin Macdonald PA-C [address] [place] [address] [email or web address] documented as of this encounter Visit Diagnoses Diagnosis Abnormal mammogram Abnormal mammogram, unspecified documented in this encounter Additional Health Concerns Assessment Noted Time PHQ-2 Depression Total Score: 0 11/12/19 19 1:55 PM EDT documented as of this encounter Care Teams Front Desk Monitor Relationship Specialty Start Date End Date Catherine Hernandez PA [address] [place] [email or web address] PCP - General 10/29/18 07/31/19 Bo Miller MD [address] [place] [address], [address] [address] [email or web address] PCP - General Internal Medicine 08/01/19 08/29/19 Catherine Hernandez PA [address] [place] [phone] [email or web address] PCP - General 08/30/19 12/10/21 Wen Bryson MD [address] [place] [address] [email or web address] PCP - General Family Medicine 12/11/21 09/01/22 Bo Miller MD [address] [place] [address], [address] [place] [address] [email or web address] Internal Medicine 10/29/18 Donya Ahuja MD [address] [place] [address], [address] [place] [address] [email or web address] Insurance Assigned Provider Family Medicine 12/03/18 documented as of this encounter Additional Source Comments The information contained in this document represents components of the legal health record. It is not the complete legal health record.[facility]
--- OUTSIDE RECORDS SUMMARY | 2025-06-13 12:40 | XMS_ITS | Encounter Summary ---
Author Organization [facility] Address [address] [place] [address] Phone Care Team Providers Care Bench Worker Hollow Handle Name Role Phone Catherine Hernandez Primary Care Provide r Bo Miller MD Unavailable [phone] Donya Ahuja MD Unavailable [phone] Bo Miller MD Primary Care Provider [phone] Catherine Hernandez Primary Care Provide r Wen Bryson MD Primary Care Provid er Encounter Details Date Type Department Care Team (Late Contact Info) Description 12/07/2018 Ancillary Orders 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 [employer] Not on file Not on file Not on file documented as of this encounter Plan of Treatment Upcoming Encounters Date Type Department Care Team (Late st Contact Info) Description 10/25/2025 10:40 AM EDT Office Visit [facility] [place] [facility] [address] [place], [place] [phone] Caitlin Macdonald PA-C [address] [place] [address] [email or web address] documented as of this encounter Results * Mammogram Outside (No Interpretation) (04/15/2017 12:00 AM EDT) Narrative SYSTEMGENERATED, DOCUMENTATION - 12/07/2018 10:26 AM EDT This study is for PACS storage only and not for interpretation. us Provider Not In System PhD IMG OUTSIDE IMAGING W /OUT INTERPRETATION Final Result documented in this encounter Visit Diagnoses Not on filedocumented in this encounter Additional Health Concerns Assessment Noted Time PHQ-2 Depression Total Score: 0 11/12/19 19 1:55 PM EDT documented as of this encounter Care Teams Bench Worker Hollow Handle Relationship Specialty Start Date End Date Catherine Hernandez PA [address] [place] [phone] [email or web address] PCP - General 10/29/18 07/31/19 Bo Miller MD [address] [place] [address], [address] [place] [address] jose [email or web address] PCP - General Internal Medicine 08/01/19 08/29/19 Catherine Hernandez PA [address] [place] [phone] [email or web address] PCP - General 08/30/19 12/10/21 Wen Bryson MD [address] [place] [address] [place] [phone] [email or web address] PCP - General Family Medicine 12/11/21 09/01/22 Bo Miller MD [address] [place] [address], [address] [place] [address] jose Internal Medicine 10/29/18 Donya Ahuja MD [address] [place] [address], [address] [place] [address] Insurance Assigned Provider Family Medicine 12/03/18 documented as of this encounter Additional Source Comments The information contained in this document represents components of the legal health record. It is not the complete legal health record.[facility]
--- OUTSIDE RECORDS SUMMARY | 2025-06-13 12:40 | XMS_ITS | Encounter Summary ---
Author Organization [facility] Address [address] [place] [address] Phone Care Team Providers Care Yarn Spooler Name Role Phone Catherine Hernandez Primary Care Provide r Bo Miller MD Unavailable [phone] Donya Ahuja MD Unavailable [phone] Bo Miller MD Primary Care Provider [phone] Catherine Hernandez Primary Care Provide r Wen Bryson MD Primary Care Provid er Encounter Details Date Type Department Care Team (Late st Contact Info) Description 12/09/2018 Ancillary Orders [facility] [place] [address] Catherine Hernandez PA [address] [place] [phone] [email or web address] Abnormal mammogram Social History [...] Start Date 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 file Not on file Not on file documented as of this encounter Plan of Treatment Upcoming Encounters Date Type Department Care Team (Late st Contact Info) Description 10/25/2025 10:40 AM EDT Office Visit [facility] [place] [facility] [address] [place] [address] Caitlin Macdonald PA-C [address] [place] [address] [email or web address] documented as of this encounter Results * BI MAMMOGRAM DIAGNOSTIC WITH TOMOSYNTHESIS WITH CAD (RIGHT) (12/09/2018 2:04 PM EDT) Anatomical Region Laterality Modality Breast Right, Breast Bilateral Right M ammography 12/09/2018 2:10 PM EDT Impressions 12/09/2018 2:36 PM EDT Following additional views of the right breast, there are no worrisome findings. Routine bilateral screening is recommended. The results were relayed to the patient. BI-RADS CATEGORY: 1 - Negative. POS CDHMAMA Edited by: Shauna Lawrence on 12/09/2018 2:19 PM Narrative 12/09/2018 2:36 PM EDT Right mammogram additional views. 3-D spot compression MLO view is compared to the screening study from 12/06/2018. The asymmetric density noted on the recent screening study does not persist on this additional view and is felt to have been a superimposition artifact. No new/worrisome findings are identified today. Procedure Note Jacques Ramos MD - 12/09/2018 Right mammogram additional views. 3-D spot compression MLO view is compared to the screening study from12/06/2018. The asymmetric density noted on the recent screening study does notpersist on this additional view and is felt to have been a superimpositionartifact. No new/worrisome findings are identified today. IMPRESSION: Following additional views of the right breast, there are no worrisomefindings. Routine bilateral screening is recommended. The results were relayed to the patient. BI-RADS CATEGORY: 1 - Negative. POS CDHMAMA Edited by: Shauna Lawrence on 12/09/2018 2:19 PM Catherine DOSHI IMG MG EXAMS Final Result documented in this encounter Visit Diagnoses Diagnosis Abnormal mammogram Abnormal mammogram, unspecified Abnormal mammogram Abnormal mammogram, unspecified documented in this encounter Additional Health Concerns Assessment Noted Time PHQ-2 Depression Total Score: 0 11/12/19 1:55 PM EDT documented as of this encounter Care Teams Yarn Spooler Relationship Specialty Start Date End Date Catherine Hernandez PA [address] [place] [phone] [email or web address] PCP - General 10/29/18 07/31/19 Bo Miller MD [address] [place] [address], [address] [place] [phone] jose [email or web address] PCP - General Internal Medicine 08/01/19 08/29/19 Catherine Hernandez PA [address] [place] [phone] [email or web address] PCP - General 08/30/19 12/10/21 Wen Bryson MD [address] [place] [address] [place] [phone] [email or web address] PCP - General Family Medicine 12/11/21 09/01/22 Bo Miller MD [address] [place] [address], [address] [place] [address] [email or web address] Internal Medicine 10/29/18 Donya Ahuja MD [address] [place] [address], [address] [place] [address] [email or web address] Insurance Assigned Provider Family Medicine 12/03/18 documented as of this encounter Additional Source Comments The information contained in this document represents components of the legal health record. It is not the complete legal health record.[facility]
--- OUTSIDE RECORDS SUMMARY | 2025-06-13 12:40 | XMS_ITS | Encounter Summary ---
Author Organization [facility] Address [address] [place] [address] Phone Care Team Providers Care Cold Type Artist Name Role Phone Catherine Hernandez Primary Care Provide r Bo Miller MD Unavailable [phone] Donya Ahuja MD Unavailable [phone] Bo Miller MD Primary Care Provider [phone] Catherine Hernandez Primary Care Provide r Wen Bryson MD Primary Care Provid er Encounter Details Date Type Department Care Team (Late Contact Info) Description 12/07/2018 Ancillary Orders [facility],Outside Imaging [address] [place], [place] [phone] System, Provider Not In, PhD Partners [address] [address] Social History Tobacco Use Types Packs/Day Years [...] Start Date 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 Not on file Not on file documented as of this encounter Plan of Treatment Upcoming Encounters Date Type Department Care Team (Late st Contact Info) Description 10/25/2025 10:40 AM EDT Office Visit [facility] [place] [facility] [address] [place], [place] [phone] Caitlin Macdonald PA-C [address] [place] [address] [email or web address] documented as of this encounter Results * Mammogram Outside (No Interpretation) (04/14/2016 12:00 AM EDT) Narrative SYSTEMGENERATED, DOCUMENTATION - 12/07/2018 10:27 AM EDT This study is for PACS storage only and not for interpretation. us Provider Not In System PhD IMG OUTSIDE IMAGING W /OUT INTERPRETATION Final Result documented in this encounter Visit Diagnoses Not on filedocumented in this encounter Additional Health Concerns Assessment Noted Time PHQ-2 Depression Total Score: 0 11/12/19 19 1:55 PM EDT documented as of this encounter Care Teams Cold Type Artist Relationship Specialty Start Date End Date Catherine Hernandez PA [address] [place] [phone] [email or web address] PCP - General 10/29/18 07/31/19 Bo Miller MD [address] [place] [address], [address] [place] [address] jose [email or web address] PCP - General Internal Medicine 08/01/19 08/29/19 Catherine Hernandez PA [address] [place] [phone] [email or web address] PCP - General 08/30/19 12/10/21 eWn Bryson MD [address] [place] [address] [place] [phone] [email or web address] PCP - General Family Medicine 12/11/21 09/01/22 Bo Miller MD [address] [place] [address], [address] [place] [address] jose Internal Medicine 10/29/18 Donya Ahuja MD [address] [place] [address], [address] [place] [address] Insurance Assigned Provider Family Medicine 12/03/18 documented as of this encounter Additional Source Comments The information contained in this document represents components of the legal health record. It is not the complete legal health record.[facility]
== END 2025-06-13 11:11 | disposition home or self-care (01) ==
LOC: HO.HMCH 10:12
PROVIDERS: PCP Internal Medicine; Visit Provider Internal Medicine
DX: Z00.00 Encounter for general adult medical examination without abnormal findings (principal); F32.0 Major depressive disorder, single episode, mild; Z23 Encounter for immunization

== ENCOUNTER 2025-06-13 10:11 | Outpatient (REF) | payer MEDICARE, SELFPAY | END 2025-06-13 10:12 | disposition home or self-care (01) | LOC: HO.LAB 10:11 | PROVIDERS: PCP Internal Medicine; Visit Provider Internal Medicine | DX: Z00.00 Encounter for general adult medical examination without abnormal findings (principal); F32.0 Major depressive disorder, single episode, mild; E53.8 Deficiency of other specified B group vitamins; Z23 Encounter for immunization | CPT/HCPCS: 90471; 90656; 96127 ==

== ENCOUNTER 2025-06-13 11:19 | Outpatient (REF) | payer MEDICARE, SELFPAY ==
[2025-06-13 12:41] LABS: Alanine Aminotransferase 57 U/L (0-31); Albumin Level 4.8 g/dL (3.5-5.0); Alkaline Phosphatase 82 U/L (39-117); Anion Gap 10 (12-20); Aspartate Amino Transferase 39 U/L (5-31); Blood Urea Nitrogen 10 mg/dL (9-16); Calcium 10.1 mg/dL (8.4-10.2); Carbon Dioxide 28 mmol/L (22-29); Chloride 105 mmol/L (96-108); Cholesterol 227 mg/dL (<200); Estimated Glomerular Filt Rate > 60; HDL Cholesterol 75 mg/dL (>40); Potassium 4.4 mmol/L (3.3-5.1); Sodium 139 mmol/L (135-145); Total Protein 7.2 g/dL (6.5-8.0); Triglycerides 149 mg/dL (<150)
[2025-06-13 13:11] LABS: Folate > 20.0 ng/mL (> or = 4.0); Vitamin B12 830 pg/mL (200-900)
== END 2025-06-13 11:20 | disposition home or self-care (01) ==
LOC: HO.LAB 11:19
PROVIDERS: PCP Internal Medicine; Visit Provider Internal Medicine
DX: Z00.00 Encounter for general adult medical examination without abnormal findings (principal); E78.5 Hyperlipidemia, unspecified; E55.9 Vitamin D deficiency, unspecified; E53.8 Deficiency of other specified B group vitamins
CPT/HCPCS: 36415; 80053; 80061; 82306; 82607; 82746